=== PATIENT | female | born 1985 | race Native Hawaiian/Other Pacific Islander ===

== ENCOUNTER 2017-02-06 04:30 | Inpatient (IN) | payer SELFPAY ==
--- NOTE | 2017-02-06 05:51 | History and Physical Report ---
History of Present Illness Date of examination: 02/06/17 Date of admission: 02/06/17 05:29 Chief complaint: Painful contractions History of present illness: 31-year-old 002 at 39+5 weeks presents in active labor, [facility]. course has been complicated by GDM A1, she is GBS negative. 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 denies: single, smoking, alcohol abuse, IV drug use - Obstetrical History Expected Date of Delivery: 02/08/17 Actual Gestation: 39 Week(s) 5 Day(s) : 3 Para: 2 Medications and Allergies Allergies Allergy/AdvReac Type Severity Reaction Status Date / Time No Known Allergies Allergy Verified 01/23/15 21:37 Home Medications Medication Instructions Recorded Confirmed Last Taken Type Acetaminophen/Codeine [Tylenol #3] 1 tab PO Q6H PRN #15 tab 02/26/15 Unknown Rx methOCARBAMOL [Robaxin TAB] 500 mg PO BID #20 tab 02/26/15 Unknown Rx Review of Systems Constitutional: no weight gain, no fever, no chills, no fatigue, no chronic headaches Cardiovascular: no chest pain, no syncope, no lightheadedness, no shortness of breath, no dyspnea on exertion, no high blood pressure Respiratory: no shortness of breath, no dyspnea on exertion Gastrointestinal: abdominal pain, no nausea, no vomiting, no heartburn, no indigestion Genitourinary: no vaginal bleeding, no vaginal discharge, no leakage of fluid - Vital Signs Vital signs: Vital Signs Temp Resp 97.8 F 18 02/06/17 04:58 02/06/17 04:58 Temp Pulse Resp BP Pulse Ox 97.8 F 75 18 110/67 02/06/17 04:58 02/06/17 05:44 02/06/17 04:58 02/06/17 05:44 - Physical Exam Cardiovascular: Regular rate, Normal S1, Normal S2 Lungs: Positive: Clear to auscultation, Normal air movement Abdomen: Positive: normal appearance, soft. Negative: distention, tenderness, guarding, rigidity Genitourinary (Female): Positive: normal external genitalia Uterus: Positive: enlarged (EFW ~ 3600). Negative: tender Adnexa: both: normal Extremities: Positive: normal - Obstetrical FHR: category 1 Cervical Dilatation: 3.5 (Per RN exam) Results All other labs normal. Assessment and Plan A: 31-year-old 002 at 39+5 weeks in active labor -Category 1 tracing Issues -GDMA 1 -s/p successful in 2008 -GBS neg P: -Admit -Routine labs -Sliding scale insulin -Epidural when necessary -Expectant management - Patient Problems (1) 39 weeks gestation of Current Visit: Yes Status: Acute (2) Active labor at term Current Visit: Yes Status: Acute (3) Hx successful (vaginal after ), currently Current Visit: Yes Status: Acute (4) Gestational diabetes mellitus in childbirth, diet controlled Current Visit: Yes Status: Acute
[2017-02-06] MEDS ORDERED: BRETHINE SUB-Q PRN (05:57)
[2017-02-06] MEDS ORDERED: MINERAL OIL PO PRN (05:57)
[2017-02-06] MEDS ORDERED: ePHEDrine SULFATE IV PRN ×2 (05:57→08:00)
[2017-02-06] MEDS ORDERED: SUBLIMAZE IV PRN (05:57)
[2017-02-06] MEDS ORDERED: ZOFRAN IV PRN (05:57)
[2017-02-06] MEDS ORDERED: BRETHINE IVP PRN (05:57)
[2017-02-06] MEDS ORDERED: XYLOCAINE 2% INFILTRATI ONE (05:57)
[2017-02-06] MEDS ORDERED: D50W (25GM) Syringe IV PRN (05:58)
[2017-02-06] MEDS ORDERED: PITOCin/NS 20 UNIT/1000ML DRIP 20 UNITS/1,000 ML BAG IV SCH (06:00)
[2017-02-06] MEDS ORDERED: PITOCin/NS 30 UNIT/500ML 30 UNITS/500 ML BAG IV SCH (06:00)
[2017-02-06] MEDS: LACTATED RINGERS 1,000 ML IV SCH ×2 (06:20→07:09)
[2017-02-06 06:31] LABS: Hematocrit 37.2 % (30.3-42.9); Hemoglobin 12.3 gm/dl (10.1-14.3); Mean Corpuscular HGB Conc 33 % (30-34); Mean Corpuscular Hemoglobin 29 pg (28-32); Mean Corpuscular Volume 88 fl (79-97); Platelet Count 210 K/mm3 (140-440); Red Blood Count 4.22 M/mm3 (3.65-5.03); Red Cell Distribution Width 15.9 % (13.2-15.2); White Blood Count 13.6 K/mm3 (4.5-11.0)
[2017-02-06] MEDS ORDERED: ePHEDrine SULFATE ONE (07:28)
--- NOTE | 2017-02-06 07:55 | Anesthesia Consultation ---
Anesthesia Consult and Med Hx Date of service: 02/06/17 - Airway Anesthetic Teeth Evaluation: Good ROM Head & Neck: Adequate Mental/Hyoid Distance: Adequate Mallampati Class: Class II Intubation Access Assessment: Probably Good - Pre-Operative Health Status ASA Pre-Surgery Classification: ASA2 Proposed Anesthetic Plan: Epidural, Spinal - Pulmonary Hx Asthma: No COPD: No Hx Pneumonia: No - Cardiovascular System Hx Hypertension: No - Central Nervous System Hx Seizures: No Hx Psychiatric Problems: No - Endocrine Hx Renal Disease: No Hx End Stage Renal Disease: No Hx Non-Insulin Dependent Diabetes: Yes (gestational diabetes) Hx Hypothyroidism: No Hx Hyperthyroidism: No - Hematic Hx Anemia: No Hx Sickle Cell Disease: No - Other Systems Hx Alcohol Use: No - Additional Comments Anesthesia Medical History Comments: s/p successful (2008)
[2017-02-06] MEDS ORDERED: fentaNYL-BUPIV 2 MCG/ML-0.125% 200 MCG/100 ML BAG EPIDURAL SCH (08:00)
[2017-02-06] MEDS ORDERED: NARCAN 2 MG/2 ML IV PRN (08:00)
--- NOTE | 2017-02-06 10:00 | Progress Note ---
Assessment and Plan A: IUP @ 39 5/7 Weeks Category I Tracing Active Labor GDM A1 Previous GBS Negative P: AROM Continue Pitocin Augmentation Subjective - Subjective Date of service: 02/06/17 Patient reports: other (Resting well under epidural) Objective - Vital Signs Vital Signs: Vital Signs - 12hr 02/06/17 02/06/17 02/06/17 04:58 05:44 06:20 Temperature 97.8 F Pulse Rate 75 66 Respiratory 18 Rate Blood Pressure 110/67 Blood Pressure [Left] O2 Sat by Pulse 100 Oximetry 02/06/17 02/06/17 02/06/17 06:25 06:28 06:30 Temperature Pulse Rate 74 74 89 Respiratory Rate Blood Pressure Blood Pressure [Left] O2 Sat by Pulse 97 94 99 Oximetry 02/06/17 02/06/17 02/06/17 06:35 06:40 06:45 Temperature Pulse Rate 68 63 87 Respiratory 14 Rate Blood Pressure Blood Pressure [Left] O2 Sat by Pulse 98 96 96 Oximetry 02/06/17 02/06/17 02/06/17 06:50 06:55 06:57 Temperature Pulse Rate 72 86 78 Respiratory Rate Blood Pressure Blood Pressure [Left] O2 Sat by Pulse 94 96 92 Oximetry 02/06/17 02/06/17 02/06/17 07:00 07:05 07:10 Temperature Pulse Rate 72 72 77 Respiratory Rate Blood Pressure Blood Pressure [Left] O2 Sat by Pulse 98 98 99 Oximetry 02/06/17 02/06/17 02/06/17 07:15 07:20 07:25 Temperature Pulse Rate 76 78 72 Respiratory Rate Blood Pressure Blood Pressure [Left] O2 Sat by Pulse 99 100 100 Oximetry 02/06/17 02/06/17 02/06/17 07:30 07:35 07:40 Temperature Pulse Rate 75 79 107 H Respiratory Rate Blood Pressure Blood Pressure [Left] O2 Sat by Pulse 99 100 99 Oximetry 02/06/17 02/06/17 02/06/17 07:45 07:47 07:49 Temperature Pulse Rate 76 82 77 Respiratory Rate Blood Pressure 102/56 103/58 111/66 Blood Pressure [Left] O2 Sat by Pulse 99 Oximetry 02/06/17 02/06/17 02/06/17 07:50 07:52 07:55 Temperature Pulse Rate 83 75 75 Respiratory Rate Blood Pressure 107/53 Blood Pressure [Left] O2 Sat by Pulse 95 98 Oximetry 02/06/17 02/06/17 02/06/17 07:56 07:57 07:59 Temperature Pulse Rate 75 72 70 Respiratory Rate Blood Pressure 125/58 104/55 101/54 Blood Pressure [Left] O2 Sat by Pulse Oximetry 02/06/17 02/06/17 02/06/17 08:00 08:01 08:03 Temperature Pulse Rate 76 79 69 Respiratory Rate Blood Pressure 99/54 96/53 Blood Pressure [Left] O2 Sat by Pulse 97 Oximetry 02/06/17 02/06/17 02/06/17 08:05 08:07 08:10 Temperature 97.6 F Pulse Rate 79 68 72 Respiratory 14 Rate Blood Pressure 98/56 98/56 Blood Pressure 99/54 [Left] O2 Sat by Pulse 97 99 Oximetry 02/06/17 02/06/17 02/06/17 08:15 08:20 08:25 Temperature Pulse Rate 67 71 68 Respiratory Rate Blood Pressure 104/58 Blood Pressure [Left] O2 Sat by Pulse 99 100 99 Oximetry 02/06/17 02/06/17 02/06/17 08:30 08:35 08:36 Temperature Pulse Rate 70 62 65 Respiratory Rate Blood Pressure 95/54 Blood Pressure [Left] O2 Sat by Pulse 99 99 Oximetry 02/06/17 02/06/17 02/06/17 08:40 08:45 08:50 Temperature Pulse Rate 66 72 73 Respiratory Rate Blood Pressure Blood Pressure [Left] O2 Sat by Pulse 99 99 99 Oximetry 02/06/17 02/06/17 02/06/17 08:51 08:55 09:00 Temperature Pulse Rate 75 74 76 Respiratory Rate Blood Pressure 96/52 Blood Pressure [Left] O2 Sat by Pulse 99 99 Oximetry 02/06/17 02/06/17 02/06/17 09:05 09:06 09:10 Temperature Pulse Rate 77 75 68 Respiratory Rate Blood Pressure 92/53 Blood Pressure [Left] O2 Sat by Pulse 98 99 Oximetry 02/06/17 02/06/17 02/06/17 09:15 09:20 09:21 Temperature Pulse Rate 77 69 67 Respiratory Rate Blood Pressure 98/52 Blood Pressure [Left] O2 Sat by Pulse 99 98 Oximetry 02/06/17 02/06/17 02/06/17 09:25 09:30 09:35 Temperature Pulse Rate 84 78 73 Respiratory Rate Blood Pressure Blood Pressure [Left] O2 Sat by Pulse 99 99 99 Oximetry 02/06/17 02/06/17 02/06/17 09:36 09:40 09:45 Temperature Pulse Rate 76 71 69 Respiratory Rate Blood Pressure 94/50 Blood Pressure [Left] O2 Sat by Pulse 99 100 Oximetry 02/06/17 02/06/17 02/06/17 09:50 09:51 09:53 Temperature Pulse Rate 82 106 H 74 Respiratory Rate Blood Pressure 85/52 96/55 Blood Pressure [Left] O2 Sat by Pulse 99 Oximetry 02/06/17 09:55 Temperature Pulse Rate 74 Respiratory Rate Blood Pressure Blood Pressure [Left] O2 Sat by Pulse 100 Oximetry - Exam Breasts: normal Cardiovascular: Regular rate Lungs: Clear to auscultation, Normal air movement Abdomen: Present: normal appearance, soft, normal bowel sounds Uterus: Present: normal, firm, fundal height above umbilicus FHR: category 1 Uterine Contraction Monitor Mode: External Cervical Dilatation: 9.5 (Small amount of clear fluid upon AROM @ 0953) Cervical Effacement Percentage: 100 station: 0 Uterine Contraction Pattern: Irregular Uterine Tone Measurement Phase: Contraction Uterine Contraction Intensity: Mild Extremities: normal - Labs Labs: Abnormal Labs 02/06/17 06:15 WBC 13.6 H RDW 15.9 H Laboratory Results - last 24 hr 02/06/17 02/06/17 02/06/17 06:15 06:54 08:25 WBC 13.6 H RBC 4.22 Hgb 12.3 Hct 37.2 MCV 88 MCH 29 MCHC 33 RDW 15.9 H Plt Count 210 POC Glucose 94 Blood Type O POSITIVE Antibody Screen Negative
[2017-02-06] MEDS ORDERED: MILK OF MAGNESIA PO PRN (10:42)
[2017-02-06] MEDS ORDERED: DULCOLAX PR PRN (10:42)
[2017-02-06] MEDS ORDERED: BENADRYL PO PRN (10:42)
[2017-02-06] MEDS ORDERED: LANSINOH TP PRN (10:42)
[2017-02-06] MEDS ORDERED: TUCKS PAD TP PRN (10:42)
--- NOTE | 2017-02-06 10:50 | Procedure Note ---
OB Delivery Note - Delivery Date of Delivery: 02/06/17 (1024) Surgeon: BENJAMIN EWING Estimated blood loss: 200cc - Vaginal Delivery presentation: vertex Delivery position: OA Intrapartum events: mult.variable deceleratio Delivery induction: none Delivery augmentation: rupture of membranes, pitocin Delivery monitor: external FHT, external uterine Route of delivery: Delivery placenta: spontaneous Delivery cord: 3 umbilical vessels Episiotomy: none Delivery laceration: none Anesthesia: epidural Delivery comments: of a live 6'10 male infant over a 1st degree vaginal laceration under epidural with Apgars of 8 and 9 at 1024 on02/06/2017. directly to maternal abd/chest, skin to skin contact. Vaginal laceration repaired with 2-0 Vicryl on a SH. Spontaneous delivery of placenta complete and intact with Brock side presenting at 1032. Fundus is firm and midline; Lochia is scant. Delayed cord clamping and cutting; Cord cut by the father of the baby. Cord blood collected; Placenta discarded. - A at 1 minute: 8 at 5 minutes: 9 Infant Gender: Male (6'10)
[2017-02-06] MEDS ORDERED: SODIUM CHLORIDE FLUSH SYRINGE 10 ML IV SCH (11:00)
[2017-02-06] MEDS: NORCO 5/325 PO PRN ×2 (14:16→21:53)
[2017-02-06] MEDS: MOTRIN PO SCH (21:54)
[2017-02-06 23:10] LABS: Hematocrit 34.3 % (30.3-42.9); Hemoglobin 11.3 gm/dl (10.1-14.3)
[2017-02-07] MEDS: NORCO 5/325 PO PRN (05:52)
[2017-02-07] MEDS: MOTRIN PO SCH ×4 (05:52→18:05)
[2017-02-07] MEDS ORDERED: DEPO-PROVERA (CONTRACEPTION) IM ONE ×2 (05:59→19:00)
--- NOTE | 2017-02-07 05:59 | Progress Note ---
Assessment and Plan A: PP Day #1 GDM A1 Stable P: Follow Routine Pospartum Orders D/C home today per patient request Depo Provera prior to discharge RTOin 6 weeks Subjective - Subjective Date of service: 02/07/17 Patient reports: appetite normal, voiding normally, pain well controlled, flatus , ambulating normally [place]: doing well, bottle feeding (and ) Objective - Vital Signs Latest vital signs: Vital Signs Temp Pulse Resp BP BP Pulse Ox 02/07/17 00:25 98.6 F 71 16 101/77 02/06/17 20:00 98.6 F 66 16 99/80 02/06/17 16:55 98 F 65 18 98/51 02/06/17 12:15 98.5 F 72 18 98/46 97 02/06/17 11:51 69 113/57 02/06/17 11:48 69 98 02/06/17 11:43 74 97 02/06/17 11:38 70 97 02/06/17 11:36 73 107/56 02/06/17 11:24 72 97 02/06/17 11:21 74 103/51 02/06/17 11:15 90 88 02/06/17 11:11 81 90 02/06/17 11:10 82 92 02/06/17 11:04 80 90 02/06/17 10:59 84 89 02/06/17 10:57 118 H 134/88 02/06/17 10:56 82 93 02/06/17 10:54 82 95 02/06/17 10:49 82 97 02/06/17 10:48 97.2 F L 02/06/17 10:44 84 97 02/06/17 10:21 79 125/60 02/06/17 10:20 84 100 02/06/17 10:15 77 100 02/06/17 10:10 72 99 02/06/17 10:06 80 130/59 02/06/17 10:05 81 98 02/06/17 10:00 86 100 02/06/17 09:55 74 100 02/06/17 09:53 74 96/55 02/06/17 09:51 106 H 85/52 02/06/17 09:50 82 99 02/06/17 09:45 69 100 02/06/17 09:40 71 99 10/18/17 09:36 76 94/50 10/18/17 09:35 73 99 10/18/17 09:30 78 99 10/18/17 09:25 84 99 10/18/17 09:21 67 98/52 10/18/17 09:20 69 98 10/18/17 09:15 77 99 10/18/17 09:10 68 99 10/18/17 09:06 75 92/53 10/18/17 09:05 77 98 10/18/17 09:00 76 99 10/18/17 08:55 74 99 10/18/17 08:51 75 96/52 10/18/17 08:50 73 99 10/18/17 08:45 72 99 10/18/17 08:40 66 99 10/18/17 08:36 65 95/54 10/18/17 08:35 62 99 10/18/17 08:30 70 99 10/18/17 08:25 68 99 10/18/17 08:20 71 100 10/18/17 08:15 67 104/58 99 10/18/17 08:10 72 99 10/18/17 08:07 68 98/56 10/18/17 08:05 97.6 F 79 14 98/56 99/54 97 10/18/17 08:03 69 96/53 10/18/17 08:01 79 99/54 10/18/17 08:00 76 97 10/18/17 07:59 70 101/54 10/18/17 07:57 72 104/55 10/18/17 07:56 75 125/58 10/18/17 07:55 75 98 10/18/17 07:52 75 107/53 10/18/17 07:50 83 95 10/18/17 07:49 77 111/66 10/18/17 07:47 82 103/58 10/18/17 07:45 76 102/56 99 10/18/17 07:40 107 H 99 10/18/17 07:35 79 100 10/18/17 07:30 75 99 10/18/17 07:25 72 100 10/18/17 07:20 78 100 10/18/17 07:15 76 99 10/18/17 07:10 77 99 10/18/17 07:05 72 98 10/18/17 07:00 72 98 10/18/17 06:57 78 92 02/06/17 06:55 86 96 02/06/17 06:50 72 94 02/06/17 06:45 87 96 02/06/17 06:40 63 14 96 02/06/17 06:35 68 98 02/06/17 06:30 89 99 02/06/17 06:28 74 94 02/06/17 06:25 74 97 02/06/17 06:20 66 100 Intake and Output 02/06/17 02/06/17 02/07/17 14:59 22:59 06:59 Intake Total 102.083 240 500 Balance 102.083 240 500 Intake: IV 102.083 Lactated Ringers 1,000 ml 102.083 @ 125 mls/hr IV DIRECT BRIJESH Rx#:[id number] Oral 240 200 Intake, Free Water 300 Other: Total, Intake Amount 240 200 Estimated Blood Loss 200 - Exam Breasts: Present: normal Cardiovascular: Present: Regular rate Lungs: Present: Clear to auscultation, Normal air movement Abdomen: Present: normal appearance, soft, normal bowel sounds Uterus: Present: normal, firm, fundal height below umbilicus Extremities: Present: normal - Labs Labs: Abnormal lab results 02/06/17 Range/Units 06:15 WBC 13.6 H (4.5-11.0) K/mm3 RDW 15.9 H (13.2-15.2) %
--- NOTE | 2017-02-07 06:00 | Discharge Summary ---
Providers - Providers Date of Admission: 02/06/17 05:29 Date of discharge: 02/07/17 Attending physician: SUNSHINE HU MD Primary care physician: SUNSHINE HU MD Hospitalization Reason for admission: active labor Delivery: Episiotomy: none Laceration: 1st degree Other procedures: none complications: none Discharge diagnosis: IUP at term delivered baby: male Condition at discharge: Good Disposition: DC-01 TO HOME OR SELFCARE Plan - Provider Discharge Summary Activity: routine, no sex for 6 weeks, no heavy lifting 4 weeks, no strenuous exercise Diet: routine Instructions: routine Additional instructions: [] Smoking cessation referral if applicable(refer to patient education folder for contact #) [] Refer to [facility]'s [facility] Booklet Call your doctor immediately for: * Fever > 100.5 * Heavy vaginal bleeding ( >1 pad per hour) * Severe persistent headache * Shortness of breath * Reddened, hot, painful area to leg or breast * Drainage or odor from incision. * Keep incision clean and dry at all times and follow doctor's instructions regarding bathing/showering - Follow up plan Follow up: SUNSHINE [facility] MD [Primary Care Provider] - 6 Weeks
[2017-02-08] MEDS: NORCO 5/325 PO PRN (02:48)
[2017-02-08] MEDS: MOTRIN PO SCH ×3 (02:49→12:09)
[2017-02-08 18:38] VITALS: BP 118/69
== END 2017-02-08 19:40 | disposition home or self-care (01) | DRG 775 ==
LOC: TRG 04:30 → LD 05:29 → TRG 05:29 → OB 12:37
PROVIDERS: ADMIT Obstetrics & Gynecology; ATTEND Obstetrics & Gynecology
PROC: 10E0XZZ Delivery of Products of Conception, External Approach (ICD-10-PCS; principal; 2017-02-06)
PROC: 3E0S3BZ Introduction of Anesthetic Agent into Epidural Space, Percutaneous Approach (ICD-10-PCS; 2017-02-06)
PROC: 00HU33Z Insertion of Infusion Device into Spinal Canal, Percutaneous Approach (ICD-10-PCS; 2017-02-06)
PROC: 0HQ9XZZ Repair Perineum Skin, External Approach (ICD-10-PCS; 2017-02-06)
DX: O24.429 Gestational diabetes mellitus in childbirth, unspecified control (principal); O71.4 Obstetric high vaginal laceration alone; O76 Abnormality in fetal heart rate and rhythm complicating labor and delivery; Z3A.39 39 weeks gestation of pregnancy; Z37.0 Single live birth
CPT/HCPCS: 36415; 82962; 85014; 85018; 85027; 86850; 86900; 86901; 99211; A6250; G0463; J1050; J2590; J3010; J7120

== ENCOUNTER 2019-10-14 09:00 | Inpatient (IN) | payer OTHER ==
--- NOTE | 2019-10-14 09:24 | History and Physical Report ---
History of Present Illness Date of examination: 10/14/19 Date of admission: 10/14/19 09:00 History of present illness: PT is a at 39.1 weeks today with h/o prior C/S x 1. She is here today for a scheduled RLTCS. PT is on Glyburide for GDM and BGs well controlled per pt. Iron for anemia. No other issues during the . PT also for BTL. Past History Past Medical History: other (anemia, GDM) Past Surgical History: section (x 1) - Obstetrical History Expected Date of Delivery: 10/20/19 Actual Gestation: 39 Week(s) 1 Day(s) : 4 Hx # Term Pregnancies: 3 Number of Living Children: 3 Medications and Allergies Allergies Allergy/AdvReac Type Severity Reaction Status Date / Time No Known Allergies Allergy Verified 01/23/15 21:37 Home Medications Medication Instructions Recorded Confirmed Last Taken Type Acetaminophen/Codeine [Tylenol #3] 1 tab PO Q6H PRN #15 tab 02/26/15 02/06/17 Unknown Rx methOCARBAMOL [Robaxin TAB] 500 mg PO BID #20 tab 02/26/15 02/06/17 Unknown Rx Review of Systems All systems: negative (except HPI) - Physical Exam Abdomen: Positive: soft. Negative: tenderness - Obstetrical FHR: category 1 Results Result Diagrams: 10/14/19 09:41 All other labs normal. Assessment and Plan - Patient Problems (1) Previous delivery, antepartum Current Visit: Yes Status: Acute Plan to address problem: PT is here for her schedule RLTCS/BTL. Patient fully consented for the surgery with a physician relations manager. Risks, benefits, and alternatives were all discussed with the patient including risk of bleeding, infection, and potential for injury. Patient also aware of the approximately 06/999 chance of failure of the sterilization. Patient understands and accepts these risks. Patient agrees to proceed with surgery. All questions were answered.
[2019-10-14] MEDS ORDERED: BICITRA ORAL LIQD 30ML PO ONE ×2 (09:26→09:32)
[2019-10-14] MEDS ORDERED: FAMOTIDINE 20 MG/2 ML INJ IV ONE ×2 (09:26→09:32)
[2019-10-14] MEDS ORDERED: METOCLOPRAMIDE 10 MG/2 ML INJ IV ONE ×2 (09:26→09:32)
[2019-10-14] MEDS: LACTATED RINGERS 1,000 ML IV SCH ×2 (09:43→11:39)
[2019-10-14 09:57] LABS: Basophils # (Auto) 0.1 K/mm3 (0.0-0.1); Basophils % (Auto) 0.5 % (0.0-1.8); Eosinophils # (Auto) 0.1 K/mm3 (0.0-0.4); Eosinophils % (Auto) 1.1 % (0.0-4.3); Hematocrit 37.3 % (30.3-42.9); Hemoglobin 12.2 gm/dl (10.1-14.3); Lymphocytes # (Auto) 3.1 K/mm3 (1.2-5.4); Lymphocytes % (Auto) 31.5 % (13.4-35.0); Mean Corpuscular HGB Conc 33 % (30-34); Mean Corpuscular Volume 85 fl (79-97); Monocytes # (Auto) 0.9 K/mm3 (0.0-0.8); Monocytes % (Auto) 9.1 % (0.0-7.3); Platelet Count 304 K/mm3 (140-440); Red Cell Distribution Width 15.7 % (13.2-15.2)
[2019-10-14] MEDS ORDERED: LACTATED RINGERS 1,000 ML IV SCH (10:00)
[2019-10-14] MEDS ORDERED: ceFAZolin/Water 2 GM/20 ML 2 GM/20 ML SYRINGE IV NR ×2 (10:00)
[2019-10-14] MEDS ORDERED: OXYTOCIN 20 UNIT/1000ML DRIP 20 UNITS/1,000 ML BAG IV SCH ×3 (10:00→14:00)
[2019-10-14] MEDS ORDERED: WATER FOR IRRIG STERILE 1,500 ML BOTTLE IR ONE (12:45)
[2019-10-14] MEDS ORDERED: SODIUM CHLORIDE 0.9% IRR 1,500 ML BOTTLE IR ONE (12:45)
[2019-10-14] MEDS ORDERED: KETOROLAC 30 MG/1 ML INJ ONE (12:49)
[2019-10-14] MEDS ORDERED: DEXMEDETOMIDINE 200 MCG/2 ML VIAL IV ONE (12:49)
[2019-10-14] MEDS ORDERED: ONDANSETRON 4 MG/2 ML INJ ONE (12:49)
[2019-10-14] MEDS ORDERED: WITCH HAZEL/ GLYCERIN PAD TP PRN (13:56)
[2019-10-14] MEDS ORDERED: NALOXONE 0.4 MG/1 ML INJ IV PRN (13:56)
[2019-10-14] MEDS ORDERED: LANOLIN/ZINC/DIMETHICONE (LANSINOH) 7 GM TP PRN (13:56)
--- NOTE | 2019-10-14 13:56 | Procedure Note ---
OB Delivery Note - Delivery Date of Delivery: 10/14/19 Surgeon: ELIJAH KAHN Estimated blood loss: other (800 cc) - Section Preop diagnosis: repeat , desires sterilization Postop diagnosis: same section procedure: section, repeat low transverse, bilateral tubal ligation Disposition: PACU Complications: none Narrative: Indication: Patient is a 33-year-old at 39 weeks and 1 day with a history of a prior who is here for scheduled repeat as well as a tubal ligation for sterilization. Findings: Normal uterus, tubes and ovaries. Clear fluid. No nuchal cord. No significant intra-abdominal scarring. Mild to moderate subcutaneous tissue scarring. Procedure: Patient taken to the operating room and prepped and draped in the usual fashion. Pfannenstiel skin incision was made and carried down to the underlying fascia. Fascia was incised and the incision was extended bilaterally. Rectus fascia dissected off the rectus muscle both superiorly and inferiorly. Peritoneum identified tented up and entered. Peritoneal incision e xtended superiorly and inferiorly with good visualization of the bladder. Bladder blade was placed. Uterine incision was made and the incision was extended bilaterally. The baby was delivered from in the typical vertex fashion. Baby bulb suctioned at the incision site and again after delivery. Cord was delayed clamped and cut and handed off to waiting team. The placenta was delivered spontaneously. The uterus was exteriorized and cleared of all clots and debris. Uterine incision closed with 0 Vicryl in a running locked fashion followed by a second imbricating layer of 0 Vicryl. Good hemostasis was noted after couple of additional [id number] stitches. Her urine was clear. Attention was turned to the tubal ligation. Both tubes were ligated using 0 chromic x2 on each side. This was done successfully and without difficulty on both sides with good hemostasis noted afterwards after an additional stitch on the right side was made. Good hemostasis also noted after the uterus, tubes and ovaries were back in the abdominal cavity. The segments of tubes on each side were sent to pathology. Uterus tubes and ovaries return to the abdominal cavity. Gutters were cleared of all clots and debris and the pelvis was well irrigated. Good hemostasis noted. Interceed placed over the uterine incision and over the lower uterine segment in the midline. Attention was turned to the rectus fascia which was reapproximated with 0 Vicryl in a running fashion. Subcutaneous tissues was irrigated and reapproximated with 2-0 Vicryl in a running fashion. Skin was closed with 4-0 Vicryl in a subcuticular fashion followed by Dermabond. The procedure was concluded at this point and the patient tolerated the procedure well. All instrument and lap counts were correct. - A at 1 minute: 9 at 5 minutes: 9 Gender: Male
[2019-10-14] MEDS ORDERED: ONDANSETRON 4 MG/2 ML INJ IV PRN (13:58)
[2019-10-14] MEDS ORDERED: MAGNESIUM HYDROXIDE (MOM) ORAL LIQD UDC PO PRN (13:58)
[2019-10-14] MEDS ORDERED: SENNOSIDES 8.6 MG TAB PO PRN (13:58)
[2019-10-14] MEDS ORDERED: SIMETHICONE 80 MG CHEW TAB PO PRN (13:58)
[2019-10-14] MEDS: KETOROLAC 30 MG/1 ML INJ IV PRN (17:54)
[2019-10-14] MEDS: oxyCODONE /ACETAMINOPHEN 5-325MG TAB PO PRN (22:31)
[2019-10-15] MEDS: KETOROLAC 30 MG/1 ML INJ IV PRN ×2 (03:03→10:00)
[2019-10-15 05:54] LABS: Hematocrit 34.6 % (30.3-42.9); Hemoglobin 11.6 gm/dl (10.1-14.3)
[2019-10-15] MEDS: oxyCODONE /ACETAMINOPHEN 5-325MG TAB PO PRN ×3 (06:54→23:23)
--- NOTE | 2019-10-15 10:31 | Progress Note ---
Assessment and Plan A: POD #1 GDM P: Follow Routine orders GDM Diet Accuchecks post meals Encourage increased ambulation Subjective - Subjective Date of service: 10/15/19 Patient reports: appetite normal, voiding normally, pain well controlled, ambulating normally [place]: doing well, bottle feeding (and ) Objective - Vital Signs Latest vital signs: Vital Signs Temp Pulse Resp BP BP Pulse Ox 10/15/19 10:00 20 10/15/19 07:50 98.2 F 77 18 90/52 10/15/19 00:00 98.7 F 75 16 96/75 10/14/19 20:00 98.6 F 66 16 99/68 10/14/19 17:54 20 10/14/19 16:11 97.6 F 63 18 92/45 100 10/14/19 15:29 97.6 F 66 18 97/52 98 10/14/19 15:15 62 19 100/46 98 10/14/19 15:00 64 19 78/44 97 10/14/19 14:45 65 17 87/43 97 10/14/19 14:30 65 16 90/36 97 10/14/19 14:20 67 17 93/46 97 10/14/19 14:15 69 15 93/48 96 10/14/19 14:10 97.8 F 69 16 91/44 96 Intake and Output 10/14/19 10/15/19 10/15/19 22:59 06:59 14:59 Intake Total 500 300 340 Output Total 1900 600 Balance -1400 -300 340 Intake: IV 200 Oral 340 Intake, Free Water 300 300 Output: Urine 1900 600 Indwelling Catheter 1100 600 Other: Total, Intake Amount 340 Total, Output Amount 1100 600 # Voids Void 0 - Exam Breasts: Present: normal Cardiovascular: Present: Regular rate Lungs: Present: Clear to auscultation, Normal air movement Abdomen: Present: normal appearance, soft, normal bowel sounds Uterus: Present: normal, firm, fundal height below umbilicus Extremities: Present: normal Incision: Present: normal, dry, dressed
--- NOTE | 2019-10-15 10:38 | Post Anesthesia Evaluation ---
- Post Anesthesia Evaluation Patient Participated: Yes Airway Patent: Yes Stable Respiratory Function: Yes Nausea/Vomiting: No Temp > 96.8F: Yes Pain Manageable: Yes Adequeate Hydration: Yes Anesthesia Complications: No Block Receding Appropriately: Yes Patient on Ventilator: No
[2019-10-15] MEDS: IBUPROFEN 800 MG TAB PO PRN (17:06)
[2019-10-16] MEDS: IBUPROFEN 800 MG TAB PO PRN ×2 (03:58→17:15)
--- NOTE | 2019-10-16 10:59 | Progress Note ---
Assessment and Plan - Patient Problems (1) Status post repeat low transverse section Current Visit: Yes Status: Acute Plan to address problem: Continue routine PP orders Anticipate d/c home tomorrow F/U at office in 2 wks for incision check (2) Status post tubal ligation at time of delivery, current hosp Current Visit: Yes Status: Acute Subjective - Subjective Date of service: 10/16/19 Principal diagnosis: S/P repeat C/S; POD#2 Interval history: See admission H&P, OB operative note and PP progress notes Patient reports: appetite normal, voiding normally, pain well controlled (with medications), flatus, ambulating normally, no bowel movement [place]: doing well, bottle feeding (and ) Objective - Vital Signs Latest vital signs: Vital Signs Temp Pulse Resp BP Pulse Ox 10/16/19 08:06 98.6 F 72 18 101/58 98 10/16/19 00:00 98.6 F 66 18 114/78 10/15/19 17:08 20 10/15/19 17:06 20 10/15/19 16:10 98.2 F 86 20 110/61 Intake and Output 10/15/19 10/16/19 10/16/19 23:59 07:59 15:59 Intake Total 480 600 240 Output Total 800 Balance -320 600 240 Intake: Oral 480 240 Intake, Free Water 600 Output: Urine 800 Void 800 Other: Total, Intake Amount 120 240 Total, Output Amount 800 # Voids Void 2 1 - Exam Breasts: Present: normal Cardiovascular: Present: Regular rate Lungs: Present: Normal air movement Abdomen: Present: soft, tenderness Uterus: Present: firm, fundal height below umbilicus (U-1) Extremities: Present: edema (slight edema in ankles/feet) Deep Tendon Reflex Grade: Normal +2 Incision: Present: dry, intact (no drainage or bleeding noted. Abdominal binder in place)
--- NOTE | 2019-10-16 11:05 | Discharge Summary ---
Providers - Providers Date of Admission: 10/14/19 09:00 Date of discharge: 10/17/19 (0900) Attending physician: ELIJAH KAHN Primary care physician: SUNSHINE HU MD Hospitalization Reason for admission: section, IUP at term Delivery: Procedure: repeat low transverse Episiotomy: none Laceration: none Incision: dry, intact Other procedures: tubal ligation complications: none Discharge diagnosis: IUP at term delivered baby: male Hospital course: See admission H & P, OB operative note and PP progress notes Condition at discharge: Stable Disposition: DC- TO HOME OR SELFCARE - Discharge Diagnoses (1) Status post repeat low transverse section Status: Acute (2) Status post tubal ligation at time of delivery, current hosp Status: Acute Plan - Discharge Medications Prescriptions: Ibuprofen [Motrin 800 MG tab] 800 mg PO Q6H PRN #30 tablet PRN Reason: Pain, Mild (1-3) oxyCODONE /ACETAMINOPHEN [Percocet 5/325 mg] 1 tab PO Q6H PRN #30 tablet PRN Reason: Pain, Moderate (4-6) - Provider Discharge Summary Activity: routine, no sex for 6 weeks, no heavy lifting 4 weeks, no strenuous exercise Diet: routine Instructions: routine Additional instructions: [] Smoking cessation referral if applicable(refer to patient education folder for contact #) [] Refer to [facility]'s [facility] Booklet Call your doctor immediately for: * Fever > 100.5 * Heavy vaginal bleeding ( >1 pad per hour) * Severe persistent headache * Shortness of breath * Reddened, hot, painful area to leg or breast * Drainage or odor from incision. * Keep incision clean and dry at all times and follow doctor's instructions regarding bathing/showering - Follow up plan Follow up: ELIJAH KAHN MD [Staff Physician] - 14 Days
[2019-10-16] MEDS: oxyCODONE /ACETAMINOPHEN 5-325MG TAB PO PRN (15:26)
[2019-10-17] MEDS: IBUPROFEN 800 MG TAB PO PRN ×2 (01:37→09:21)
[2019-10-17] MEDS: oxyCODONE /ACETAMINOPHEN 5-325MG TAB PO PRN (05:06)
[2019-10-17 13:36] VITALS: BP 122/62
== END 2019-10-17 13:30 | disposition home or self-care (01) | DRG 785 ==
LOC: APU 09:00 → OBSVTOIN 09:00 → APU 12:18 → OB 15:58
PROVIDERS: ADMIT Obstetrics & Gynecology; ATTEND Obstetrics & Gynecology
PROC: 10D00Z1 Extraction of Products of Conception, Low, Open Approach (ICD-10-PCS; principal; 2019-10-14)
PROC: 0UB70ZZ Excision of Bilateral Fallopian Tubes, Open Approach (ICD-10-PCS; 2019-10-14)
DX: O34.211 Maternal care for low transverse scar from previous cesarean delivery (principal); O99.02 Anemia complicating childbirth; D64.9 Anemia, unspecified; O24.429 Gestational diabetes mellitus in childbirth, unspecified control; Z30.2 Encounter for sterilization; Z37.0 Single live birth; Z3A.39 39 weeks gestation of pregnancy
CPT/HCPCS: 36415; 85014; 85018; 85025; 86850; 86900; 86901; 88302; G0378; C1765; J1885; J2405; J2590; J2765; J3490; J7120